=== PATIENT | male | born 1965 | race African-American/Black ===

== ENCOUNTER 2017-01-11 13:29 | Emergency (ER) | payer MEDICARE, MEDICAID ==
[~2017-01-11] VITALS: Ht 182.9 cm; Wt 82.0 kg
[~2017-01-11 13:29] MED LIST: ATOR20TA PO; Aspirin PO; EMTR1TAB11 PO; KALET2 PO; LISI-652 PO
[2017-01-11 14:05] VITALS: BP 129/65
[2017-01-11] MEDS ORDERED: ALBUTEROL (0.083%) 2.5MG/3ML NEB HHN STA (14:34)
[2017-01-11] MEDS ORDERED: IPRATROPIUM BROMIDE (0.02%) 0.5MG/2.5ML NEB HHN STA (14:34)
== END 2017-01-11 16:09 | disposition left against medical advice (07) ==
LOC: ER 13:53
DX: J45.901 Unspecified asthma with (acute) exacerbation (principal); F17.200 Nicotine dependence, unspecified, uncomplicated; I10 Essential (primary) hypertension; Z88.1 Allergy status to other antibiotic agents; Z88.2 Allergy status to sulfonamides
CPT/HCPCS: 94640; 99283; J7611

== ENCOUNTER 2017-03-18 23:40 | Inpatient (IN) | payer MEDICARE, MEDICAID ==
[~2017-03-18] VITALS: Ht 167.6 cm; Wt 81.8 kg
[2017-03-18] MEDS ORDERED: LEVOFLOXACIN 750MG PREMIX 150 ML IV STA (23:50)
[2017-03-18] MEDS ORDERED: SODIUM CHLORIDE 0.9% 1,000 ML IV ONE (23:50)
[2017-03-18] MEDS ORDERED: ALBUTEROL (0.083%) 2.5MG/3ML NEB HHN STA (23:50)
[2017-03-18] MEDS ORDERED: METHYLPREDNISOLONE SOD SUCC 125 MG/2 ML VIAL IV STA (23:50)
[2017-03-18] MEDS ORDERED: IPRATROPIUM BROMIDE (0.02%) 0.5MG/2.5ML NEB HHN STA (23:50)
[2017-03-19] MEDS ORDERED: MAGNESIUM 2 G PREMIX 50 ML IV ONE
[2017-03-19] MEDS ORDERED: NITROGLYCERIN OINT 1GM/INCH UDPKT TD ONE
[2017-03-19] MEDS ORDERED: ASPIRIN 81MG TABLET PO ONE
[2017-03-19 00:42] LABS: BASOPHILS % 0.7 % (0.0-2.0); EOSINOPHILS % 14.9 % (0.0-5.0); HEMATOCRIT. 38.2 % (42.0-52.0); LYMPHOCYTES % 29.3 % (20.0-50.0); MEAN CORPUSCULAR HEMOGLOBIN 34.2 pg (28.0-32.0); MEAN CORPUSCULAR VOLUME 100.9 fL (80.0-94.0); MEAN PLATELET VOLUME 8.8 fl (7.4-10.4); MONOCYTES % 7.1 % (2.0-8.0); PLATELET 159 x1000/uL (130-400); RED BLOOD CELL COUNT 3.79 mill/uL (4.7-6.1); RED CELL DISTRIBUTION WIDTH 14.4 % (11.6-14.6)
[2017-03-19 00:51] LABS: BG BASE EXCESS -3.9 mmol/L (-2.0-2.0); BG CARBOXYHEMOGLOBIN 2.5 % (0.5-1.5); BG DEOXYHEMOGLOBIN 1.6 % (0.0-5.0); BG FRACTION INSPIRED OXYGEN 100; BG HCO3 ACT 21.9 mmol/L (22.0-26.0); BG METHEMOGLOBIN 0.3 % (0.0-1.5); BG OXYGEN SATURATION 98.4 % (92.0-98.5); BG OXYHEMOGLOBIN 95.6 % (94.0-97.0); BG PCO2 42.6 mmHg (35.0-45.0); BG PH 7.329 (7.350-7.450); BG PO2 171.4 mmHg (75.0-100.0); BG SAMPLE SITE RIGHT RADIAL; BG TOTAL HEMOGLOBIN 12.8 g/dL (12.0-18.0)
[2017-03-19 00:53] LABS: INR 1.1; PARTIAL THROMBOPLASTIN TIME 28.7 sec (23.4-31.0); PROTHROMBIN TIME 11.1 sec (9.4-11.6)
[2017-03-19 00:57] LABS: CARBON DIOXIDE 27 mEq/L (21-32); CHLORIDE 108 mEq/L (98-107); ETHANOL BLOOD < 10 mg/dL; TROPONIN I < 0.02 ng/mL (0.00-0.04)
[2017-03-19] MEDS ORDERED: ONDANSETRON HCL 4MG/2ML VIAL IV STA (01:39)
[2017-03-19] MEDS ORDERED: LABETALOL 5MG/ML SYR 20 MG/4 ML SYRINGE IV NR (01:45)
[2017-03-19 03:45] VITALS: BP 136/75
[2017-03-19 04:00] VITALS: BP 136/75
[2017-03-19] MEDS ORDERED: SODIUM CHLORIDE 0.9% 1,000 ML IV SCH (05:02)
[2017-03-19] MEDS ORDERED: DIPHENHYDRAMINE 50MG/ML VIAL IV PRN (05:15)
[2017-03-19] MEDS ORDERED: ACETAMINOPHEN 325MG TABLET PO PRN ×2 (05:15→05:30)
[2017-03-19] MEDS ORDERED: CLONIDINE 0.1MG TABLET PO PRN (05:15)
[2017-03-19] MEDS ORDERED: LORAZEPAM 0.5MG TABLET PO PRN (05:15)
[2017-03-19] MEDS ORDERED: MAGNESIUM/ALUMINUM HYDROXIDE/SIMETHICONE 30ML UDC PO PRN (05:15)
[2017-03-19] MEDS ORDERED: POTASSIUM CHLORIDE 20MEQ TABLET SR PO NR (05:30)
[2017-03-19] MEDS ORDERED: ONDANSETRON HCL 4MG/2ML VIAL IV PRN (05:30)
[2017-03-19] MEDS ORDERED: SODIUM CHLORIDE 0.9% INJ 3ML FLUSH IVF SCH (06:00)
[2017-03-19] MEDS ORDERED: METHYLPREDNISOLONE SOD SUCC 40 MG/ML VIAL IV SCH (06:00)
[2017-03-19 08:00] VITALS: BP 147/66
[2017-03-19] MEDS ORDERED: IPRATROPIUM/ALBUTEROL 0.5-3(2.5)MG/3ML NEB HHN SCH (08:00)
== END 2017-03-19 10:30 | disposition left against medical advice (07) | DRG 189 ==
LOC: ER 23:40 → 6WST 03-19 01:34 → ENRESERV 03-19 02:44
PROVIDERS: ADMIT Internal Medicine; ATTEND Internal Medicine
DX: J96.00 Acute respiratory failure, unspecified whether with hypoxia or hypercapnia (principal); J44.1 Chronic obstructive pulmonary disease with (acute) exacerbation; E78.00 Pure hypercholesterolemia, unspecified; I10 Essential (primary) hypertension; Z53.21 Procedure and treatment not carried out due to patient leaving prior to being seen by health care provider; F17.200 Nicotine dependence, unspecified, uncomplicated; Z88.2 Allergy status to sulfonamides; Z88.8 Allergy status to other drugs, medicaments and biological substances
CPT/HCPCS: 36415; 36600; 71010; 80053; 82375; 82805; 83605; 84484; 85025; 85610; 85730; 87040; 94640; 99285; G0482; J1956; J2920; J2930; J3475; J7030; J7611; J7620

== ENCOUNTER 2018-08-17 21:44 | Emergency (ER) | payer MEDICARE, MEDICAID ==
[~2018-08-17] VITALS: Ht 182.9 cm; Wt 63.0 kg
[2018-08-18] MEDS ORDERED: HYDROCODONE/ACETAMINOPHEN 10/325MG TABLET PO ONE (04:00)
[2018-08-18 05:07] VITALS: BP 122/93
== END 2018-08-18 05:13 | disposition home or self-care (01) ==
LOC: ER 21:44
DX: S22.42XA Multiple fractures of ribs, left side, initial encounter for closed fracture (principal); Y04.2XXA Assault by strike against or bumped into by another person, initial encounter; R03.0 Elevated blood-pressure reading, without diagnosis of hypertension; Y93.89 Activity, other specified; Y92.89 Other specified places as the place of occurrence of the external cause; F17.210 Nicotine dependence, cigarettes, uncomplicated
CPT/HCPCS: 71045; 93005; 99283

== ENCOUNTER 2018-11-15 10:32 | Emergency (ER) | payer MEDICARE, MEDICAID ==
[~2018-11-15] VITALS: Ht 182.9 cm; Wt 66.0 kg
[2018-11-15 11:51] LABS: BASOPHILS % 0.6 % (0.0-2.0); HEMATOCRIT. 40.1 % (42.0-52.0); HEMOGLOBIN. 13.4 g/dL (14.0-18.0); LYMPHOCYTES % 18.3 % (20.0-50.0); MEAN CORPUSCULAR HEMOGLOBIN 33.6 pg (28.0-32.0); MEAN CORPUSCULAR VOLUME 100.6 fL (80.0-94.0); MEAN PLATELET VOLUME 8.2 fl (7.4-10.4); NEUTROPHILS % 62.1 % (40.0-76.0); PLATELET 174 x1000/uL (130-400); RED BLOOD CELL COUNT 3.99 mill/uL (4.7-6.1); RED CELL DISTRIBUTION WIDTH 15.3 % (11.6-14.6)
[2018-11-15 11:58] LABS: PROTHROMBIN TIME 10.4 sec (9.6-11.0)
[2018-11-15 11:59] LABS: CHLORIDE 111 mEq/L (98-107)
[2018-11-15 12:15] VITALS: BP 125/75
== END 2018-11-15 14:34 | disposition home or self-care (01) ==
LOC: ER 10:32
DX: R53.1 Weakness (principal); R05 Cough; R11.0 Nausea; F17.210 Nicotine dependence, cigarettes, uncomplicated
CPT/HCPCS: 36415; 71045; 93005; 99284

== ENCOUNTER 2019-04-20 07:24 | Emergency (ER) | payer MEDICAID, MEDICARE ==
[~2019-04-20] VITALS: Ht 182.9 cm; Wt 64.0 kg
[2019-04-20] MEDS ORDERED: SODIUM CHLORIDE 0.9% 1,000 ML IV ONE (08:34)
[2019-04-20] MEDS ORDERED: KETOROLAC 30MG/ML VIAL IV STA (08:34)
[2019-04-20] MEDS ORDERED: ONDANSETRON HCL 4MG/2ML INJ IV STA (08:34)
[2019-04-20 09:22] LABS: BASOPHILS % 0.4 % (0.0-2.0); EOSINOPHILS % 9.6 % (0.0-5.0); HEMATOCRIT. 39.1 % (42.0-52.0); LYMPHOCYTES % 23.9 % (20.0-50.0); MEAN CORPUSCULAR HEMOGLOBIN 33.4 pg (28.0-32.0); MEAN CORPUSCULAR VOLUME 100.1 fL (80.0-94.0); MEAN PLATELET VOLUME 7.7 fl (7.4-10.4); MONOCYTES % 8.4 % (2.0-8.0); NEUTROPHILS % 57.7 % (40.0-76.0); PLATELET 194 x1000/uL (130-400); RED BLOOD CELL COUNT 3.91 mill/uL (4.7-6.1); RED CELL DISTRIBUTION WIDTH 14.3 % (11.6-14.6)
[2019-04-20 09:23] LABS: CHLORIDE 110 mEq/L (98-107)
[2019-04-20 10:30] VITALS: BP 127/81
== END 2019-04-20 10:57 | disposition home or self-care (01) ==
LOC: ER 07:43
DX: R19.7 Diarrhea, unspecified (principal)
CPT/HCPCS: 36415; 80053; 83690; 85025; 96361; 96374; 96375; 99283; J1885; J2405; J7030

== ENCOUNTER 2019-10-12 19:27 | Emergency (ER) | payer MEDICARE, MEDICAID ==
[~2019-10-12] VITALS: Ht 182.9 cm; Wt 63.5 kg
[2019-10-12 19:50] VITALS: BP 169/84
[2019-10-12] MEDS ORDERED: IPRATROPIUM BROMIDE (0.02%) 0.5MG/2.5ML NEB HHN ONE (21:30)
[2019-10-12] MEDS ORDERED: ALBUTEROL (0.5%) 2.5MG/0.5ML NEB HHN ONE (21:30)
== END 2019-10-12 23:58 | disposition home or self-care (01) ==
LOC: ER 19:27
DX: R06.02 Shortness of breath (principal)
CPT/HCPCS: 94640; 99283

== ENCOUNTER 2023-11-06 23:59 | Emergency (ER) | payer MEDICARE, OTHER ==
[~2023-11-06] VITALS: Ht 190.5 cm; Wt 52.5 kg
[~2023-11-06 23:59] MED LIST changes: +ALBU18HF2 PO; +ALLO100T PO; +ALPR2TAB2 PO; +AMLO10TA80 PO; -ATOR20TA PO; +ATOR20TA65 PO; -Aspirin PO; +DOLU50TA PO; -EMTR1TAB11 PO; +EMTR1TAB12 PO; +FINA5TAB11 PO; +FLUT1BLS12 IH; +GEMTESA PO; +HYDR12.54 PO; +IBUP-2029 PO; -KALET2 PO; -LISI-652 PO; +LOSA100T33 PO; +LURA20TA2 PO; +MELO-105 PO; +OMEP20CA14 PO; +QUET400T12 PO; +TAMS-11 PO; +VENL37.586 PO
[2023-11-07 00:19] VITALS: BP 164/90; PULSE 98; RESP 19; TEMP 98.3; O2SAT 100
[2023-11-07 01:42] LABS: HEMOGLOBIN. 11.2 g/dL (14.0-18.0); WHITE BLOOD COUNT 5.4 x1000/uL (4.5-11.0)
[2023-11-07 01:45] LABS: BASOPHILS % 0.3 % (0.0-2.0); EOSINOPHILS % 1.6 % (0.0-5.0); HEMATOCRIT. 33.1 % (42.0-52.0); LYMPHOCYTES % 47.1 % (20.0-50.0); MEAN CORPUSCULAR HEMOGLOBIN 31.7 pg (28.0-32.0); MEAN CORPUSCULAR VOLUME 93.4 fL (80.0-94.0); MEAN PLATELET VOLUME 7.6 fl (7.4-10.4); MONOCYTES % 9.1 % (2.0-8.0); NEUTROPHILS % 41.9 % (40.0-76.0); PLATELET 179 x1000/uL (130-400); RED BLOOD CELL COUNT 3.54 mill/uL (4.7-6.1); RED CELL DISTRIBUTION WIDTH 14.6 % (11.6-14.6)
[2023-11-07 01:57] LABS: CHLORIDE 103 mEq/L (98-107); SODIUM 137 mEq/L (136-145)
[2023-11-07 01:58] LABS: CALCIUM 8.5 mg/dL (8.7-10.4); CARBON DIOXIDE 30 mEq/L (21-32)
[2023-11-07 02:03] LABS: CREATININE 0.8 mg/dL (0.6-1.3); GLUCOSE 84 mg/dL (70-105); UREA NITROGEN BLOOD 9 mg/dL (9-23)
[2023-11-07 02:05] LABS: ALANINE AMINOTRANSFERASE < 7 IU/L (10-49); ALBUMIN 3.6 g/dL (3.2-4.8); ASPARTATE AMINOTRANSFERASE 22 IU/L (<34); BILIRUBIN TOTAL 0.5 mg/dL (0.1-1.0)
[2023-11-07] MEDS: POTASSIUM CHLORIDE 20MEQ/PACKET PO ONE (03:35)
== END 2023-11-07 06:33 | disposition home or self-care (01) ==
LOC: ER 11-07 00:26
DX: E87.6 Hypokalemia (principal); K52.9 Noninfective gastroenteritis and colitis, unspecified; I10 Essential (primary) hypertension; J44.1 Chronic obstructive pulmonary disease with (acute) exacerbation; Z88.2 Allergy status to sulfonamides; J45.909 Unspecified asthma, uncomplicated; Z79.899 Other long term (current) drug therapy
CPT/HCPCS: 36415; 74176; 80053; 85025; 99284

== ENCOUNTER 2024-09-21 04:35 | Emergency (ER) | payer MEDICARE, MEDICAID ==
[~2024-09-21] VITALS: Ht 170.2 cm; Wt 59.0 kg
[~2024-09-21 04:35] MED LIST changes: -TAMS-11 PO; +TAMS-54 PO
[2024-09-21 04:40] VITALS: O2SAT 95
[2024-09-21] MEDS: ACETAMINOPHEN 325MG TABLET PO ONE (05:30)
[2024-09-21 11:47] VITALS: BP 117/67; PULSE 68; RESP 17; TEMP 36.6; O2SAT 97
== END 2024-09-21 11:50 ==
LOC: ER 04:35
DX: S09.90XA Unspecified injury of head, initial encounter (principal); Z04.3 Encounter for examination and observation following other accident; J44.89 Other specified chronic obstructive pulmonary disease; E11.9 Type 2 diabetes mellitus without complications; Z79.01 Long term (current) use of anticoagulants; Z79.1 Long term (current) use of non-steroidal anti-inflammatories (NSAID); Z79.899 Other long term (current) drug therapy; Z98.890 Other specified postprocedural states; Z79.51 Long term (current) use of inhaled steroids; Z79.624 Long term (current) use of inhibitors of nucleotide synthesis; Z88.1 Allergy status to other antibiotic agents; Z88.2 Allergy status to sulfonamides; W19.XXXA Unspecified fall, initial encounter; Y93.89 Activity, other specified; Y92.89 Other specified places as the place of occurrence of the external cause; Y99.8 Other external cause status
CPT/HCPCS: 72170; 99285; A4606

== ENCOUNTER 2024-10-15 10:22 | Emergency (ER) | payer MEDICARE, MEDICAID ==
[~2024-10-15] VITALS: Ht 167.6 cm; Wt 75.0 kg
[2024-10-15 10:24] VITALS: O2SAT 97
[2024-10-15 15:27] VITALS: BP 148/79; PULSE 68; RESP 17; TEMP 36.6; O2SAT 98
== END 2024-10-15 15:30 | disposition home or self-care (01) ==
LOC: ER 10:22
DX: S09.8XXA Other specified injuries of head, initial encounter (principal); R51.9 Headache, unspecified; E11.9 Type 2 diabetes mellitus without complications; I10 Essential (primary) hypertension; J44.9 Chronic obstructive pulmonary disease, unspecified; W01.190A Fall on same level from slipping, tripping and stumbling with subsequent striking against furniture, initial encounter; Y93.89 Activity, other specified; Y92.89 Other specified places as the place of occurrence of the external cause; Y99.8 Other external cause status; Z79.1 Long term (current) use of non-steroidal anti-inflammatories (NSAID); Z79.51 Long term (current) use of inhaled steroids; Z79.624 Long term (current) use of inhibitors of nucleotide synthesis; Z79.899 Other long term (current) drug therapy; Z86.73 Personal history of transient ischemic attack (TIA), and cerebral infarction without residual deficits; Z88.1 Allergy status to other antibiotic agents; Z88.2 Allergy status to sulfonamides
CPT/HCPCS: 99284